=== PATIENT | male | born 1975 | race Caucasian/White ===

== ENCOUNTER 2017-05-10 07:50 | Emergency (ER) | payer OTHER ==
--- NOTE | 2017-05-10 08:39 | CPEKG ---
Heart Rate: 41 RR Interval: 1463 P-R Interval: 168 QRSD Interval: 104 QT Interval: 472 QTC Interval: 390 P Seney: 44 QRS Seney: 19 T Wave Seney: 35 EKG Severity - ABNORMAL ECG - EKG Impression: SINUS BRADYCARDIA EKG Impression: ST ELEVATION, PROBABLE LATERAL INJURY EKG Impression: ST ELEVATION, CONSIDER ANTERIOR INJURY EKG Impression: TALL T, CONSIDER METABOLIC/ISCHEMIC ABNRM Electronically Signed By: Kyle Richey 10-May-2017 15:45:41
[2017-05-10] MEDS ORDERED: NS 1,000 ML IV ONE ×2 (08:57)
[2017-05-10 09:03] LABS: PLATELET COUNT 223 10^3/uL (150-400)
--- NOTE | 2017-05-10 09:19 | EDPHY ---
H & P Smoking Status: Never smoked Time Seen by Provider: 05/10/17 08:26 HPI/ROS: CHIEF COMPLAINT: Syncope, facial laceration HISTORY OF PRESENT ILLNESS: 41-year-old male presents to the emergency department by private vehicle after having a syncopal episode around 130 early this morning. Patient states that he went out to dinner with his and had some alcohol. He went to bed around 11 30 and felt fine and then when he woke up around 130 to go to the bathroom he was feeling a bit lightheaded. He then had a syncopal episode he thinks when he was walking back to his bed. He fell and hit the right side of his head. He has a mild right-sided headache. Denies neck pain. Denies chest pain or difficulty breathing. He did not have any chest pain or difficulty breathing prior to his syncopal episode. The patient is extremely active and bikes and runs every day. He has never had history of syncopal episode. His last tetanus shot was 4 or 5 years ago. REVIEW OF SYSTEMS: Constitutional: No fever, no chills. Eyes: No double or blurry vision. ENT: No sore throat. Respiratory: No cough, no shortness of breath. Cardiac: No chest pain. Gastrointestinal: No abdominal pain, vomiting or diarrhea. Genitourinary: No dysuria. Musculoskeletal: No neck or back pain. Skin: Facial laceration. No rashes. Neurological: No headache. (April Elizabeth) Past Medical/Surgical History: Negative (April Elizabeth) Social History: (April Elizabeth) Physical Exam: General Appearance: Alert, no distress. Mentating normally and answering questions appropriately. 129/78. Eyes: Pupils equal and round. Extraocular motions are all intact. ENT: Mouth: Mucous membranes moist. Respiratory: No wheezing, rhonchi, or rales, lungs are clear to auscultation. Cardiovascular: Regular rate and rhythm. Bradycardic. Gastrointestinal: Abdomen is soft and nontender, no masses, no rebound or guarding, bowel sounds normal. Neurological: Alert and oriented x 3, cranial nerves II through XII grossly intact Skin: 2.5 cm laceration noted to the right eyebrow. There is no active bleeding noted. No palpable facial bony tenderness. Warm and dry, no rashes. Musculoskeletal: Nontender to palpate along the cervical, thoracic or lumbar spine. Neck is supple. Extremities: Full range of motion and no peripheral edema. Psychiatric: Patient is oriented X 3, there is no agitation. (April Elizabeth) Constitutional: Initial Vital Signs Temperature (C) 36.8 C 05/10/17 08:07 Heart Rate 54 L 05/10/17 08:07 Respiratory Rate 18 05/10/17 08:07 Blood Pressure 129/78 H 05/10/17 08:07 O2 Sat (%) 98 05/10/17 08:07 O2 Delivery Mode Room Air Allergies/Adverse Reactions: No Known Allergies Allergy (Verified 05/10/17 08:06) Home Medications: Medication Instructions Recorded NK [No Known Home Meds] 05/10/17 Medical Decision Making - Diagnostics EKG Interpretation: EKG interpreted by me shows sinus bradycardia with normal interval and axis. QRS is normal there is anterior lateral ST elevation consistent with early repolarization pattern. However the computer reads it as an acute OK. Rate is 41 Repeat EKG at about 11:00 a.m. Shows sinus bradycardia normal interval and axis. QRS normal there is still evidence of early repolarization pattern. It does not look ischemic. Rate is 43. No significant change from previous EKG today. (Kyle Richey) Procedures: Laceration repair. Verbal consent was obtained from the patient. The 2.5 cm laceration on the right eyebrow was anesthetized using 1% lidocaine with epinephrine. The wound was irrigated with saline, draped and explored to its base with a gloved finger. The wound was repaired with 6 0 Prolene, 7 sutures. The wound repair was simple. The procedure was performed by myself. (April Elizabeth) ED Course/Re-evaluation: I have also seen this patient and evaluated him. This appears to sound like that he had some alcohol got up to go to the bathroom and had a passing out episode. He has never had chest discomfort or trouble breathing. He does not have a history of cardiac illness or risk factors. I consulted discussed case with Dr. Self, cardiology, who reviewed the EKG and feels that this represents early repolarization pattern as well. Cardiac workup shows a normal troponin. (Kyle Richey) 41-year-old male presents to the emergency department after syncopal episode. He had a right eyebrow laceration which was repaired, see procedure note. The patient did have a history of a syncopal episode. Laboratory studies were all within normal limits. Case was discussed with Dr. Kyle Richey, secondary supervising physician, who also evaluated the patient. The patient did sustain head injury. He has no headache. He has a normal neurologic examination. I discussed the pros and cons of CT imaging of his brain including radiation exposure and the patient agrees with not obtaining CT scan. (April Elizabeth) Differential Diagnosis: Syncope including but not limited to vasovagal syncope, arrhythmia, dehydration , and blood loss. (April Elizabeth) - Data Points Laboratory Results: Laboratory Results 05/10/17 08:40 05/10/17 08:40 05/10/17 05/10/17 08:40 08:40 WBC 5.28 10^3/uL 10^3/uL (3.80-9.50) RBC 5.64 10^6/uL 10^6/uL (4.40-6.38) Hgb 16.8 g/dL g/dL (13.7-17.5) Hct 48.0 % % (40.0-51.0) MCV 85.1 fL fL (81.5-99.8) MCH 29.8 pg pg (27.9-34.1) MCHC 35.0 g/dL g/dL (32.4-36.7) RDW 12.6 % % (11.5-15.2) Plt Count 223 10^3/uL 10^3/uL (150-400) MPV 9.4 fL fL (8.7-11.7) Neut % (Auto) 57.0 % % (39.3-74.2) Lymph % (Auto) 29.9 % % (15.0-45.0) [place] % (Auto) 9.5 % % (4.5-13.0) Eos % (Auto) 2.8 % % (0.6-7.6) Baso % (Auto) 0.4 % % (0.3-1.7) Nucleat RBC Rel Count 0.0 % % (0.0-0.2) Absolute Neuts (auto) 3.01 10^3/uL 10^3/uL (1.70-6.50) Absolute Lymphs (auto) 1.58 10^3/uL 10^3/uL (1.00-3.00) Absolute Monos (auto) 0.50 10^3/uL 10^3/uL (0.30-0.80) Absolute Eos (auto) 0.15 10^3/uL 10^3/uL (0.03-0.40) Absolute Basos (auto) 0.02 10^3/uL 10^3/uL (0.02-0.10) Absolute Nucleated RBC 0.00 10^3/uL 10^3/uL (0-0.01) Immature Gran % 0.4 % % (0.0-1.1) Immature Gran # 0.02 10^3/uL 10^3/uL (0.00-0.10) Sodium 143 mEq/L mEq/L (135-145) Potassium 4.2 mEq/L mEq/L (3.5-5.2) Chloride 103 mEq/L mEq/L (97-110) Carbon Dioxide 27 mEq/l mEq/l (22-31) Anion Gap 13 mEq/L mEq/L (8-16) BUN 16 mg/dL mg/dL (7-23) Creatinine 0.8 mg/dL mg/dL (0.7-1.3) Estimated GFR > 60 Glucose 88 mg/dL mg/dL (70-100) Calcium 9.2 mg/dL mg/dL (8.5-10.4) Troponin I < 0.012 ng/mL ng/mL (0.000-0.034) Medications Given: Discontinued Medications Sodium Chloride (Ns) 1,000 mls @ 0 mls/hr IV EDNOW ONE; Wide Open PRN Reason: Protocol Stop: 05/10/17 08:58 Last Admin: 05/10/17 09:18 Dose: 1,000 mls Sodium Chloride (Ns) 1,000 mls @ 0 mls/hr IV EDNOW ONE; Wide Open PRN Reason: Protocol Stop: 05/10/17 08:58 Last Admin: 05/10/17 10:08 Dose: 1,000 mls Departure - Departure Disposition: Home, Routine, Self-Care Clinical Impression: Syncope Qualifiers: Syncope type: unspecified Qualified Code(s): R55 - Syncope and collapse Laceration of right eyebrow Qualifiers: Encounter type: initial encounter Qualified Code(s): S01.111A - Laceration without foreign body of right eyelid and periocular area, initial encounter Condition: Good Instructions: Laceration (ED), Syncope (ED) Additional Instructions: Wound Care Follow-Up: Removal of sutures in 5 days. Suture removal is complimentary in uncomplicated cases. Infection or abnormal findings would require reevaluation by the MD. In that case, you may be billed. Diet and activity as tolerated. Follow-up with ground support agent as discussed regarding your syncopal episode. Return to the emergency department if you have any recurring syncopal episodes or if you feel worse in any way. You should avoid alcohol. Referrals: Rosa Block MD [Primary Care Provider] - As per Instructions Cooper Self MD [Medical Doctor] - As per Instructions (System Software Programmer on-call)
[2017-05-10 10:06] VITALS: RESP 16
--- NOTE | 2017-05-10 10:58 | CPEKG ---
Heart Rate: 43 RR Interval: 1395 P-R Interval: 160 QRSD Interval: 98 QT Interval: 472 QTC Interval: 400 P Reading: 47 QRS Reading: 21 T Wave Reading: 36 EKG Severity - BORDERLINE ECG - EKG Impression: SINUS BRADYCARDIA EKG Impression: ST ELEV, PROBABLE NORMAL EARLY REPOL PATTERN EKG Impression: TALL T, CONSIDER METABOLIC/ISCHEMIC ABNRM Electronically Signed By: Kyle Richey 10-May-2017 15:45:32
[2017-05-10 11:18] VITALS: BP 125/67; PULSE 42; TEMP 98.2; O2SAT 99
== END 2017-05-10 11:16 | disposition home or self-care (01) ==
PROC: 0HQ1XZZ Repair Face Skin, External Approach (ICD-10-PCS; principal; 2017-05-10)
DX: S01.111A Laceration without foreign body of right eyelid and periocular area, initial encounter (principal); R55 Syncope and collapse; E86.9 Volume depletion, unspecified; W01.198A Fall on same level from slipping, tripping and stumbling with subsequent striking against other object, initial encounter; Y92.89 Other specified places as the place of occurrence of the external cause; Y99.8 Other external cause status; Y93.01 Activity, walking, marching and hiking